=== PATIENT | female | born 1950 | race Caucasian/White ===

== ENCOUNTER 2019-01-16 21:24 | Inpatient (IN) | payer MEDICARE, OTHER, SELFPAY ==
[2019-01-16] VITALS (31 sets, daily range): BP systolic 118–174; BP diastolic 54–98; PULSE 85–140; RESP 14–31; TEMP 37.2; O2SAT 92–97
--- NOTE | 2019-01-16 21:57 | W.ED.GENAD ---
Discharge Plan Disposition Patient Disposition: [facility] INPATIENT Condition: Improving Discharge Details Chief Complaint: Chest Pain Clinical Impression: Atrial fibrillation, rapid Admit Date/Time: 01/17/19 01:28 Admit Provider: Alf London Attending Provider: Alf London Primary Care Provider: Sheela Murillo ED Provider: Bulmaro Chapa Discharge Data Discharge Date/Time-TO BE ENTERED AT DEPARTURE: 01/17/19 02:26 Medical Decision Making 68-year-old female who has a history of atrial fibrillation, diabetes, weeks to months of intermittent episodes of chest pain. She is here visiting family from her home in [place]. Today she reports generalized malaise, intermittent episodes of chest pressure at home. It was associated with elevated heart rate, nausea and diaphoresis. The patient had no chest pain at the time of arrival. Patient noted to have rapid atrial fibrillation with rate of approximately 115 upon arrival. Placed on a night monitor, IV access established, given fluid bolus and given that she does take a beta-jeancarlos she was given a parenteral dose of Lopressor for rate control. Records obtained from [facility] detailing myocardial perfusion pharmacologic stress test on September 24. This noted no acute findings, normal wall motion with ejection fraction of 57%. The myocardial perfusion images were normal. Today, patient had persistent tachydysrhythmia despite 2 doses of IV metoprolol. She therefore was placed on a diltiazem drip. She had 2 brief episodes of transient return to sinus rhythm, but then rapid A. fib recurred. Her labs reveal discrete elevation of the troponin at 0.24, likely due to rate related demand ischemia, particularly given the known recent negative stress test. Repeat troponin obtained at 2 hrs increased to 0.74. Remainder of her lab panel notable for magnesium of 1.4, chronic kidney disease with creatinine of 1.8. At approximately 0025h, the patient converted to rate controlled Afib with HR 70's, then had recurrent rapid Afib. Chest x-ray unremarkable. Case discussed with on-call [facility] cardiology, Dr. Kwong. He agrees this is most likely demand ischemia and states now that the patient is nearing good rate control, he does not feel any tertiary intervention is indicated. He recommends ongoing care as per current plan. Patient states she wishes to be full code. Lab Data Lab results reviewed: Yes I reviewed the patient's lab results. Laboratory Results - last 24 hr 01/16/19 01/16/19 01/16/19 21:45 21:45 21:45 WBC 8.42 RBC 3.95 L Hgb 11.3 L Hct 34.5 L MCV 87.3 MCH 28.6 MCHC 32.8 RDW 14.2 Plt Count 241 MPV 12.4 H Immature Gran % 0.5 Neutrophils % 72.9 Lymphocytes % 11.8 Monocytes % 12.7 Eosinophils % 2.0 Basophils % 0.1 Absolute Neutrophils 6.14 Absolute Lymphocytes 0.99 L Absolute Monocytes 1.07 H Absolute Eosinophils 0.17 Absolute Basophils 0.01 APTT 35.7 H Sodium 138 Potassium 4.1 Chloride 104 Carbon Dioxide 21.8 Anion Gap 12.2 H BUN 47 H Creatinine 1.88 H Estimated GFR/1.73 m2 26.46 Glucose 219 H Magnesium 1.4 L Total Bilirubin 0.4 AST 15 ALT 27 Alkaline Phosphatase 69 Troponin I 0.24 H* Total Protein 7.2 Albumin 3.2 L ECG Data Attestation: I personally reviewed and interpreted this ECG (s) as follows: Interpretation: Atrial fibrillation with a rate of 115, the QRS is narrow, there is nonspecific ST segment depressions of less than 1 mm in leads I, V4 through V6. EKG @22:37 underlying atrial fibrillation with a rate of 117, the QRS is narrow, there is not ST segment depression in leads I, aVL, V4 through 6 per HPI General Mode of arrival: ambulatory. Date/Time Provider Initiated Documentation: 01/16/19 21:27. Limitations to Documentation: no limitations. Information obtained by: patient. History of Present Illness 68 year old F presents to the emergency department with the chief complaint of Chest discomfort and weakness over hours today, similar to previous. , described as moderate and similar to prior episodes, with intensity rated at 5. Quality is described as dull, and is localized to the chest and left. Patient extremity. Patient started experiencing this hour(s) and it has been intermittent and now resolved. No relieving factors improve symptom(s), No exacerbating factors reported . Patient notes loss of appetite, malaise, weakness and other (Palpitations and fast heart rate). Patient did receive the following treatments prior to arrival, Aspirin Related Data Home Medications Medication Instructions Recorded Confirmed amlodipine 10 mg PO DAILY 01/16/19 01/16/19 atorvastatin 40 mg PO DAILY 01/16/19 01/16/19 ergocalciferol (vitamin D2) 1 unit PO DAILY 01/16/19 01/16/19 [Vitamin D2] hydralazine 25 mg PO TID 01/16/19 01/16/19 hydrochlorothiazide 12.5 mg PO DAILY 01/16/19 01/16/19 insulin glargine [Basaglar KwikPen 78 unit SUBCUT HS 01/16/19 01/16/19 U-100 Insulin] losartan 50 mg PO DAILY 01/16/19 01/16/19 metformin 1,000 mg PO BID 01/16/19 01/16/19 metoprolol tartrate 50 mg PO BID 01/16/19 01/16/19 sodium bicarbonate 650 mg PO DAILY 01/16/19 01/16/19 warfarin 4 mg PO HS 01/16/19 01/16/19 Allergies Allergy/AdvReac Type Severity Reaction Status Date / Time Penicillins Allergy Intermediate Hives Unverified 01/16/19 21:55 General Stated Complaint: Chest Pain ANGELITO: 2 Review of Systems Review of Systems 6 systems reviewed and otherwise neg. patient lives in [place]. She reports weeks 2 months of intermittent episodes of left-sided chest pressure that resulted in her having an outpatient stress test at [facility] that she reports was negative [facility] Medical History Atypical chest pain (Chronic) [facility] (current) use of anticoagulants (Chronic) Atrial fibrillation (Chronic) Osteoarthritis of both hips (Chronic) Diabetic retinopathy associated with uncontrolled type 2 diabetes mellitus (Chronic) Chronic renal insufficiency (Chronic) Type 2 diabetes mellitus, with long-term current use of insulin (Chronic) Essential hypertension (Chronic) History of diabetic ulcer of foot (Resolved) Surgical History History of appendectomy (Resolved) History of partial amputation of toe (Resolved) History of phacoemulsification of cataract of both eyes with intraocular lens implantation (Resolved) Social History Smoking/Tobacco Use Status: Never Alcohol Intake: current Alcohol Intake frequency: holidays/special occasions only Alcohol type: wine Substance use type: does not use Do you feel safe at home: Yes Do you feel safe in your relationship?: Yes Exam Narrative Exam Narrative: GEN: awake, alert, oriented 3. Pleasant, well groomed, interactive. HEAD: Normocephalic, atraumatic ENT: Mucous membranes moist, oropharynx unremarkable, External ear exam unremarkable EYES: PERRL, EOMI NECK: Full ROM, no LORI, no menigismus CHEST/RESP: Nontender, clear to auscultation bilateral, no wheeze/rhonchi/rales CARDIOVASCULAR: Tachycardic and irregularly irregular, no murmur, rub heather. 2+ Rad pulse bilateral ABDOMEN: Soft, nontender, no mass. +Bowel sounds EXT: Full ROM, no edema, no rash Neuro: Grossly normal neurologic exam, conversant, interactive. Psych: Speech fluent, thoughts congruent, affect normal Course Vital Signs Temperature 37.2 C 01/16/19 21:43 Pulse 116 H 01/16/19 21:43 Respiratory Rate 30 H 01/16/19 21:43 Blood Pressure 162/63 H 01/16/19 21:43 Pulse Oximetry 96 01/16/19 21:43 Temperature 37.2 C 01/16/19 21:43 Temperature Source Temporal Artery Scan 01/16/19 21:43 Pulse 116 H 01/16/19 21:43 Respiratory Rate 19 01/16/19 21:45 Respiratory Effort 01/16/19 21:45 Respiratory Depth Normal 01/16/19 21:45 Respiratory Pattern Normal 01/16/19 21:45 Blood Pressure 162/63 H 01/16/19 21:43 Blood Pressure Position Supine 01/16/19 21:43 Pulse Oximetry 96 01/16/19 21:43 Oxygen Delivery Method Room Air 01/16/19 21:43 Oxygen Flow Rate 0 01/16/19 21:43 Pain Level 0 01/16/19 21:43 Critical Care Time Critical Care Time: Yes Total Critical Care Time: 60 Attestation: Discussion with consultants, interaction with family and friends, review of outside records, bedside care
--- NOTE | 2019-01-16 22:02 | ED.GENADUL_ITS ---
Discharge Plan Disposition Patient Disposition: [facility] INPATIENT Condition: Improving Discharge Details Chief Complaint: Chest Pain Clinical Impression: Atrial fibrillation, rapid Admit Date/Time: 01/17/19 01:28 Admit Provider: Alf London Attending Provider: Alf London Primary Care Provider: Sheela Murillo ED Provider: Bulmaro Chapa Discharge Data Discharge Date/Time-TO BE ENTERED AT DEPARTURE: 01/17/19 02:26 Medical Decision Making 68-year-old female who has a history of atrial fibrillation, diabetes, weeks to months of intermittent episodes of chest pain. She is here visiting family from her home in [place]. Today she reports generalized malaise, intermittent episodes of chest pressure at home. It was associated with elevated heart rate, nausea and diaphoresis. The patient had no chest pain at the time of arrival. Patient noted to have rapid atrial fibrillation with rate of approximately 115 upon arrival. Placed on a alarm security or surveillance monitor, IV access established, given fluid bolus and given that she does take a beta-jeancarlos she was given a parenteral dose of Lopressor for rate control. Records obtained from [facility] detailing myocardial perfusion pharmacologic stress test on September 24. This noted no acute findings, normal wall motion with ejection fraction of 57%. The myocardial perfusion images were normal. Today, patient had persistent tachydysrhythmia despite 2 doses of IV metoprolol. She therefore was placed on a diltiazem drip. She had 2 brief episodes of transient return to sinus rhythm, but then rapid A. fib recurred. Her labs reveal discrete elevation of the troponin at 0.24, likely due to rate related demand ischemia, particularly given the known recent negative stress test. Repeat troponin obtained at 2 hrs increased to 0.74. Remainder of her lab panel notable for magnesium of 1.4, chronic kidney disease with creatinine of 1.8. At approximately 0025h, the patient converted to rate controlled Afib with HR 70's, then had recurrent rapid Afib. Chest x-ray unremarkable. Case discussed with on-call [facility] cardiology, Dr. Kwong. He agrees this is most likely demand ischemia and states now that the patient is nearing good rate control, he does not feel any tertiary intervention is indicated. He recommends ongoing care as per current plan. Patient states she wishes to be full code. Lab Data Lab results reviewed: Yes I reviewed the patient's lab results. Laboratory Results - last 24 hr 01/16/19 01/16/19 01/16/19 21:45 21:45 21:45 WBC 8.42 RBC 3.95 L Hgb 11.3 L Hct 34.5 L MCV 87.3 MCH 28.6 MCHC 32.8 RDW 14.2 Plt Count 241 MPV 12.4 H Immature Gran % 0.5 Neutrophils % 72.9 Lymphocytes % 11.8 Monocytes % 12.7 Eosinophils % 2.0 Basophils % 0.1 Absolute Neutrophils 6.14 Absolute Lymphocytes 0.99 L Absolute Monocytes 1.07 H Absolute Eosinophils 0.17 Absolute Basophils 0.01 APTT 35.7 H Sodium 138 Potassium 4.1 Chloride 104 Carbon Dioxide 21.8 Anion Gap 12.2 H BUN 47 H Creatinine 1.88 H Estimated GFR/1.73 m2 26.46 Glucose 219 H Magnesium 1.4 L Total Bilirubin 0.4 AST 15 ALT 27 Alkaline Phosphatase 69 Troponin I 0.24 H* Total Protein 7.2 Albumin 3.2 L ECG Data Attestation: I personally reviewed and interpreted this ECG (s) as follows: Interpretation: Atrial fibrillation with a rate of 115, the QRS is narrow, there is nonspecific ST segment depressions of less than 1 mm in leads I, V4 through V6. EKG @22:37 underlying atrial fibrillation with a rate of 117, the QRS is narrow, there is not ST segment depression in leads I, aVL, V4 through 6 per HPI General Mode of arrival: ambulatory . Date/Time Provider Initiated Documentation: 01/16/19 21:27 . Limitations to Documentation: no limitations . Information obtained by: patient . History of Present Illness 68 year old F presents to the emergency department with the chief complaint of Chest discomfort and weakness over hours today, similar to previous. , described as moderate and similar to prior episodes, with intensity rated at 5. Quality is described as dull, and is localized to the chest and left. Patient extremity. Patient started experiencing this hour(s) and it has been intermittent and now resolved. No relieving factors improve symptom(s), No exacerbating factors reported . Patient notes loss of appetite, malaise, weakness and other (Palpitations and fast heart rate). Patient did receive t he following treatments prior to arrival, Aspirin Related Data Home Medications Medication Instructions Recorded Confirmed amlodipine 10 mg PO DAILY 01/16/19 01/16/19 atorvastatin 40 mg PO DAILY 01/16/19 01/16/19 ergocalciferol (vitamin D2) 1 unit PO DAILY 01/16/19 01/16/19 [Vitamin D2] hydralazine 25 mg PO TID 01/16/19 01/16/19 hydrochlorothiazide 12.5 mg PO DAILY 01/16/19 01/16/19 insulin glargine [Basaglar KwikPen 78 unit SUBCUT HS 01/16/19 01/16/19 U-100 Insulin] losartan 50 mg PO DAILY 01/16/19 01/16/19 metformin 1,000 mg PO BID 01/16/19 01/16/19 metoprolol tartrate 50 mg PO BID 01/16/19 01/16/19 sodium bicarbonate 650 mg PO DAILY 01/16/19 01/16/19 warfarin 4 mg PO HS 01/16/19 01/16/19 Allergies Allergy/AdvReac Type Severity Reaction Status Date / Time Penicillins Allergy Intermediate Hives Unverified 01/16/19 21:55 General Stated Complaint: Chest Pain ANGELITO: 2 Review of Systems Review of Systems 6 systems reviewed and otherwise neg. patient lives in [place]. She reports weeks 2 months of intermittent episodes of left-sided chest pressure that resulted in her having an outpatient stress test at [facility] that she reports was negative [facility] Medical History Atypical chest pain (Chronic) [facility] (current) use of anticoagulants (Chronic) Atrial fibrillation (Chronic) Osteoarthritis of both hips (Chronic) Diabetic retinopathy associated with uncontrolled type 2 diabetes mellitus (Chronic) Chronic renal insufficiency (Chronic) Type 2 diabetes mellitus, with long-term current use of insulin (Chronic) Essential hypertension (Chronic) History of diabetic ulcer of foot (Resolved) Surgical History History of appendectomy (Resolved) History of partial amputation of toe (Resolved) History of phacoemulsification of cataract of both eyes with intraocular lens implantation (Resolved) Social History Smoking/Tobacco Use Status: Never Alcohol Intake: current Alcohol Intake frequency: holidays/special occasions only Alcohol type: wine Substance use type: does not use Do you feel safe at home: Yes Do you feel safe in your relationship?: Yes Exam Narrative Exam Narrative: GEN: awake, alert, oriented 3. Pleasant, well groomed, interactive. HEAD: Normocephalic, atraumatic ENT: Mucous membranes moist, oropharynx unremarkable, External ear exam unremarkable EYES: PERRL, EOMI NECK: Full ROM, no LORI, no menigismus CHEST/RESP: Nontender, clear to auscultation bilateral, no wheeze/rhonchi/rales CARDIOVASCULAR: Tachycardic and irregularly irregular, no murmur, rub heather. 2+ Rad pulse bilateral ABDOMEN: Soft, nontender, no mass. +Bowel sounds EXT: Full ROM, no edema, no rash Neuro: Grossly normal neurologic exam, conversant, interactive. Psych: Speech fluent, thoughts congruent, affect normal Course Vital Signs Temperature 37.2 C 01/16/19 21:43 Pulse 116 H 01/16/19 21:43 Respiratory Rate 30 H 01/16/19 21:43 Blood Pressure 162/63 H 01/16/19 21:43 Pulse Oximetry 96 01/16/19 21:43 Temperature 37.2 C 01/16/19 21:43 Temperature Source Temporal Artery Scan 01/16/19 21:43 Pulse 116 H 01/16/19 21:43 Respiratory Rate 19 01/16/19 21:45 Respiratory Effort 01/16/19 21:45 Respiratory Depth Normal 01/16/19 21:45 Respiratory Pattern Normal 01/16/19 21:45 Blood Pressure 162/63 H 01/16/19 21:43 Blood Pressure Position Supine 01/16/19 21:43 Pulse Oximetry 96 01/16/19 21:43 Oxygen Delivery Method Room Air 01/16/19 21:43 Oxygen Flow Rate 0 01/16/19 21:43 Pain Level 0 01/16/19 21:43 Critical Care Time Critical Care Time: Yes Total Critical Care Time: 60 Attestation: Discussion with consultants, interaction with family and friends, review of outside records, bedside care
[2019-01-16] MEDS: Normal Saline 1,000 ML 1000 ML IV (22:10)
[2019-01-16] MEDS: Metoprolol 5 MG/5 ML VIAL IVP ×2 (22:10→22:35)
[2019-01-16 22:34] LABS: Abs Immature Grans 0.04 k/cumm (0.0-0.09); Absolute Basophil Count 0.01 k/cumm (0.0-0.2); Absolute Eosinophil Count 0.17 k/cumm (0.0-0.7); Absolute Lymphocyte Count 0.99 k/cumm (1.2-3.4); Absolute Monocyte Count 1.07 k/cumm (0.11-0.7); Absolute Neutrophil Count 6.14 k/cumm (1.2-6.7); Basophils % 0.1; HCT 34.5 % (36.0-46.0); HGB 11.3 g/dL (12.0-15.5); Immature Grans % 0.5; Lymphocytes % 11.8; Mean Corp. HGB Concentration 32.8 g/dL (32.0-36.0); Mean Corpuscular Hemoglobin 28.6 pg (27.0-33.0); Mean Corpuscular Volume 87.3 fL (80-95); Mean Platelet Volume 12.4 fL (8.0-11.0); Monocytes % 12.7; Neutrophils % 72.9; Platelet Count 241 x1000/uL (130-400); RBC 3.95 m/cumm (4.00-5.20); RBC Distribution Width 14.2 % (11.7-14.6); White Blood Cell Count 8.42 k/cumm (4.4-10.8)
[2019-01-16 22:45] LABS: PTT Activated 35.7 sec (21.0-31.4)
[2019-01-16 22:46] LABS: ALT 27 U/L (12-78); AST 15 U/L (15-37); Albumin 3.2 g/dL (3.4-5.0); Alkaline Phosphatase 69 U/L (46-116); Anion Gap 12.2 mmol/L (3-11); BUN 47 mg/dL (7-18); Bilirubin, Total 0.4 mg/dL (0.2-1.0); CO2 21.8 mmol/L (21.0-32.0); CREATININE 1.88 mg/dL (0.55-1.02); Chloride 104 mmol/L (98-107); Estimated GFR 26.46 (mL/min/1.73m2); Glucose 219 mg/dL (70-100); Magnesium 1.4 mg/dL (1.8-2.4); Potassium 4.1 mmol/L (3.5-5.1); Sodium 138 mmol/L (136-145); Total Protein 7.2 g/dL (6.4-8.2)
[2019-01-16 22:51] LABS: Troponin I 0.24 ng/mL (0.00-0.06)
[2019-01-16 22:55] LABS: Calcium 8.6 mg/dL (8.5-10.1)
[2019-01-16] MEDS: dilTIAZem 25 MG/5 ML VIAL 10 MG IVP ×3 (23:00→23:40)
[2019-01-16] MEDS: dilTIAZem 125 MG in Normal Saline 100 ML 10 MG IV (23:10)
[2019-01-16 23:15] LABS: INR 2.5 (0.9-1.1); Prothrombin Time 25.5 sec (9.3-11.0)
--- NOTE | 2019-01-16 23:30 | DI.RAD_ITS ---
SYMPTOMS/DIAGNOSIS: LEFT CHEST PAIN AP AND LATERAL CHEST: The AP view is limited by patient positioning and technique. Leads overlie the chest. The heart size is within normal limits. There may be mild underlying fibrotic changes. No superimposed infiltrate, effusion or pulmonary edema is seen. There is no evidence of pneumothorax. IMPRESSION: No acute abnormality.
[2019-01-16] MEDS: Acetaminophen 325 MG TAB 650 MG PO (23:36)
[2019-01-16] MEDS: Aspirin 81 MG CHEW 162 MG PO (23:36)
--- NOTE | 2019-01-16 23:49 | DI.VRAD_ITS ---
EXAM: XR Chest, 2 Views EXAM DATE/TIME: 01/16/2019 9:53 PM CLINICAL HISTORY: 68 years old, female; Left-sided chest pain; Patient HX: Chest pain radiating into L arm, vomiting and diarrhea TECHNIQUE: Imaging protocol: XR of the chest, 2 views. COMPARISON: No relevant prior studies available. FINDINGS: Lungs: No gross infiltrates or edema. Pleural space: No pleural effusion. No pneumothorax. Heart/Mediastinum: Heart size normal. No mediastinal widening. Pulmonary vaculature normal. No tracheal shift. Bones/joints: No acute osseous abnormalities are identified. IMPRESSION: No acute process is evident radiographically. Dictated and Authenticated by: Jonnie Leal MD. Ordering:NANCY Chamberlain MD
[2019-01-17] VITALS (69 sets, daily range): BP systolic 96–157; BP diastolic 36–89; PULSE 49–140; RESP 1–40; TEMP 36.9–37.2; O2SAT 92–99
[2019-01-17 00:05] LABS: Troponin I 0.74 ng/mL (0.00-0.06)
[2019-01-17] MEDS: MAGNESIUM SULFATE 2 GM/50 ML BAG IVPB ×2 (00:45→08:52)
[2019-01-17 02:06] LABS: Troponin I 2.19 ng/mL (0.00-0.06)
--- NOTE | 2019-01-17 02:48 | HPE_ITS ---
Date of service: 01/17/19 Time of Service: 02:34 Assessment and Plan (1) Non-STEMI (non-ST elevated myocardial infarction): Current visit: Yes Status: Acute secondary to rapid atrial fibrillation and type 2 demand ischemia. However, still need to monitor troponin levels until peaked and are on their way down. continue current regimen of warfarin and metoprolol, however, currently needs iv diltiazem to control rapid atrial fibrillation. check echocardiogram to assess LV function; however bedside POCUS suggests normal LV systolic function (based on multiple views including PLAX, PSAX, AP4C and subxiphoid 4C. (2) Atrial fibrillation: Current visit: Yes Status: Chronic chronic afib w/ acute rapid rate causing chest pain and elevated troponins. Now that her rate is improved her CP has resolved and her ST-T changes in her lateral leads have improved. Will continue to cycle her troponin levels until declining and get formal echocardiogram in the a.m. She is anticoagulated w/ warfarin therefore no need for heparin at present. Will continue her lopressor and titrate the iv diltiazem for rate control. Check TSH w/ reflex T4 with her a.m. 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 will continue her current warfarin regimen and monitor daily INR (4) Type 2 diabetes mellitus, with long-term current use of insulin: Current visit: Yes Status: Chronic continue her home dose of Lantus and provide sliding scale novolog and meal coverage. hold metformin for now in setting of NSTEMI Qualifiers: Diabetes mellitus complication detail: with chronic kidney disease Diabetes mellitus complication status: with kidney complications (5) Essential hypertension: Current visit: Yes Status: Chronic continue home meds of hydralazine, amlodipine, losartan and metoprolol (6) Chronic renal insufficiency: Current visit: Yes Status: Chronic avoid nephrotoxins/NSAID's; control BP and HR to improve hemodynamics; monitor renal function particularly in setting of NSTEMI Qualifiers: Chronic kidney disease stage: stage 4 (severe) Qualified Code(s): N18.4 - Chronic kidney disease, stage 4 (severe) History of Present Illness Chief Complaint: chest pain Narrative: 68 yr old female w/ PMH of atrial fibrillation (anticoagulated w/ warfarin, rate controlled w/ lopressor), type 2 DM on insulin, HTN who present to the ER w/ c/o of intermittent episodes of chest pain. Onset was Thursday and lasted most of the morning. She felt fine this morning but her chest pain reoccurred Thursday afternoon. This was not associated w/ any dyspnea but she noted that she felt fatiguted and could not walk more than a few steps. Her friend and her family finally convinced her to check her BP and pulse this evening when she found herself to be hypertensive at 192/107 and tachycardiac at 150 bpm. She then decided to come to the ER [facility]. She lives in [place] and is visiting a friend in [place], [place] and arrived Thursday evening for the weekend. Apparently she had a workup of her chest pain at [facility] in September that included normal pharmacologic stress MPI w/ LVEF 57% and no wall motion abnormalities according to information sent to our ER. [facility] she was found to be in rapid atrial fibrillation with lateral ST-T depression and elevated troponin of 0.24 and repeat of 0.74. She was given lopressor 5 mg IVP x 2 doses w/ transient return to NSR only to follow w/ return of rapid atrial fibrillation. She subsequently was placed on diltiazem drip and given repeated boluses of diltiazem 10 mg each w/ titration of her rate to 15 mg/hr. Dr. Bulmaro Chapa, emergency room attending, spoke w/ Dr. Kwong, junior php developer at [facility] who felt that the patient's elevated troponins and EKG changes are secondary to rate related ischemia and felt that improving afib rate was primary treatment and that the patient did not need transfer to tertiary care center. Since Dr. Chapa spoke w/ [facility], the patient's rapid afib rate has come under improved control and her repeat EKG has improved of her ST changes. CXR did not show any acute CHF. The patient is now admitted to ICU on diltiazem drip for afib rate control and continued HR/rhythm monitoring and continued trending of her troponin levels. She was also found to have renal insufficiency w/ creatinine of 1.88 and BUN 47 and hypomagnesemia (Mg 1.4 treated w/ magnesium bolus of 2 gm). Review of Systems Review of Systems All systems reviewed & are unremarkable except as noted in HPI and below Eyes Reports blurry vision (secondary to retinopathy in right eye) ENT Reports system reviewed and no additional complaints, except as docu Cardiovascular Reports as per HPI, Reports chest pain, Reports rapid heart rate, Denies pedal edema, Denies claudication, Denies leg edema, Denies lightheadedness and Denies dyspnea Respiratory Reports system reviewed and no additional complaints, except as docu and Denies dyspnea Gastrointestinal Reports diarrhea (chronic loose BM's for intermittently for mos., ?metformin) Genitourinary Reports system reviewed and no additional complaints, except as docu Musculoskeletal Reports arthralgias, Denies joint swelling, Denies numbness, Denies radiating pain into limb and Reports tingling (in feet) Integumentary/Breasts Reports system reviewed and no additional complaints, except as docu Neurologic Denies numbness and Reports tingling (in feet) Psychiatric Reports system reviewed and no additional complaints, except as docu Endocrine Reports system reviewed and no additional complaints, except as docu Hematologic/Lymphatic Reports easy bruising Allergic/Immunologic Reports system reviewed and no additional complaints, except as docu PFSH Medical History Atypical chest pain (Chronic) intermodal owner operator truck driver (current) use of anticoagulants (Chronic) Atrial fibrillation (Chronic) Osteoarthritis of both hips (Chronic) Diabetic retinopathy associated with uncontrolled type 2 diabetes mellitus (Chronic) Chronic renal insufficiency (Chronic) Type 2 diabetes mellitus, with long-term current use of insulin (Chronic) Essential hypertension (Chronic) History of diabetic ulcer of foot (Resolved) Surgical History History of appendectomy (Resolved) History of partial amputation of toe (Resolved) History of phacoemulsification of cataract of both eyes with intraocular lens implantation (Resolved) Social History Smoking/Tobacco Use Status: Never Alcohol Intake: current Alcohol Intake frequency: holidays/special occasions only Alcohol type: wine Substance use type: does not use Do you feel safe at home: Yes Do you feel safe in your relationship?: Yes Meds Home Medications Medication Instructions Recorded Confirmed Type amlodipine 10 mg PO DAILY 01/16/19 01/16/19 History atorvastatin 40 mg PO DAILY 01/16/19 01/16/19 History ergocalciferol (vitamin D2) 1 unit PO DAILY 01/16/19 01/16/19 History [Vitamin D2] hydralazine 25 mg PO TID 01/16/19 01/16/19 History hydrochlorothiazide 12.5 mg PO DAILY 01/16/19 01/16/19 History insulin glargine [Basaglar KwikPen 78 unit SUBCUT HS 01/16/19 01/16/19 History U-100 Insulin] losartan 50 mg PO DAILY 01/16/19 01/16/19 History metformin 1,000 mg PO BID 01/16/19 01/16/19 History metoprolol tartrate 50 mg PO BID 01/16/19 01/16/19 History sodium bicarbonate 650 mg PO DAILY 01/16/19 01/16/19 History warfarin 4 mg PO HS 01/16/19 01/16/19 History Allergies Allergy/AdvReac Type Severity Reaction Status Date / Time Penicillins Allergy Intermediate Hives Unverified 01/16/19 21:55 Exam Const General: cooperative, no acute distress and well hydrated Nutritional Appearance: obese Orientation: alert, awake and oriented x3 HENMT Head: normal to inspection, no palpable skull fracture, normocephalic and atraumatic General nose exam: external nose normal, nares normal and nasal mucous membranes and turbinates normal Face and sinus: normal facial exam Mouth: oral mucosae normal, lip normal, tongue normal, oropharynx normal and moist mucous membranes Teeth and gingiva: dentition normal Chest Chest: normal inspection of the chest and normal palpation of entire chest wall Resp Effort & Inspection: normal respiratory effort and able to speak in complete sentences Auscultation: clear to auscultation bilaterally Cardio Jugular venous pressure: no JVD Palpation: normal PMI Rate: regular rate Rhythm: abnormal rhythm irregularly irregular Heart Sounds: no murmurs Bruits: no abdominal aortic bruits and carotid bruit bilaterally Pulses: posterior tibial pulses present bilaterally 1+ and diminished and dorsalis pedis pulses present bilaterally 1+ and diminished GI Inspection: non-distended and obesity Palpation: soft and no hepatosplenomegaly Percussion: normal to percussion Auscultation: normal bowel sounds Rectal Exam - female: deferred Back/Spine/Pelvis Back: no CVA tenderness Cervical Spine: normal cervical lordosis Thoracic/Lumbar Spine: thoracic and lumbar spine normal to inspection Skin General skin exam: no rashes or lesions noted, elasticity normal and turgor normal Neuro General: alert, awake, oriented x3, moves all extremities and no focal motor deficits Cranial Nerves: CN's II-XI intact bilaterally Cognition: normal cognition Speech: speech normal Motor: muscle tone normal throughout, strength 5/5 throughout and no movement abnormalities noted Sensory Exam: normal double simultaneous stimulation Extrem General: full ROM, normal capillary refill, normal exam except as noted (s/p partial amputation of distal L. 3rd toe), no clubbing, cyanosis or edema, no pedal edema and no calf tenderness Psych Appearance: grossly normal Mental Status: mental status grossly normal Speech and Movement: speech and movement normal Mood: congruent mood Affect: normal affect Attitude: cooperative Thought Process: normal Thought Content: normal Insight: insight good Judgment: judgment good Results Imaging Chest x-ray: report reviewed (IMPRESSION: No acute process is evident radiographically. Dictated and Authenticated by: Jonnie Leal MD.) EKG: image reviewed Labs : 01/16/19 21:45 01/16/19 21:45 Laboratory Results - last 24 hr 01/16/19 01/16/19 01/16/19 21:45 21:45 21:45 WBC 8.42 RBC 3.95 L Hgb 11.3 L Hct 34.5 L MCV 87.3 MCH 28.6 MCHC 32.8 RDW 14.2 Plt Count 241 MPV 12.4 H Immature Gran % 0.5 Neutrophils % 72.9 Lymphocytes % 11.8 Monocytes % 12.7 Eosinophils % 2.0 Basophils % 0.1 Absolute Neutrophils 6.14 Absolute Lymphocytes 0.99 L Absolute Monocytes 1.07 H Absolute Eosinophils 0.17 Absolute Basophils 0.01 PT 25.5 H INR 2.5 H APTT 35.7 H Sodium 138 Potassium 4.1 Chloride 104 Carbon Dioxide 21.8 Anion Gap 12.2 H BUN 47 H Creatinine 1.88 H Estimated GFR/1.73 m2 26.46 Glucose 219 H Calcium 8.6 Magnesium 1.4 L Total Bilirubin 0.4 AST 15 ALT 27 Alkaline Phosphatase 69 Troponin I 0.24 H* Total Protein 7.2 Albumin 3.2 L 01/16/19 01/17/19 23:42 01:44 WBC RBC Hgb Hct MCV MCH MCHC RDW Plt Count MPV Immature Gran % Neutrophils % Lymphocytes % Monocytes % Eosinophils % Basophils % Absolute Neutrophils Absolute Lymphocytes Absolute Monocytes Absolute Eosinophils Absolute Basophils PT INR APTT Sodium Potassium Chloride Carbon Dioxide Anion Gap BUN Creatinine Estimated GFR/1.73 m2 Glucose Calcium Magnesium Total Bilirubin AST ALT Alkaline Phosphatase Troponin I 0.74 H* 2.19 H* Total Protein Albumin Last Vital Signs Temp 37.2 C 01/16/19 21:43 Pulse 79 01/17/19 01:31 Resp 23 01/17/19 01:43 BP 125/55 L 01/17/19 01:31 Pulse Ox 94 L 01/17/19 01:31
[2019-01-17 03:32] LABS: NT-proBNP 5079 pg/mL
[2019-01-17 05:26] LABS: Abs Immature Grans 0.02 k/cumm (0.0-0.09); Absolute Basophil Count 0.01 k/cumm (0.0-0.2); Absolute Eosinophil Count 0.16 k/cumm (0.0-0.7); Absolute Lymphocyte Count 1.64 k/cumm (1.2-3.4); Absolute Neutrophil Count 4.09 k/cumm (1.2-6.7); Basophils % 0.1; Eosinophils % 2.3; HGB 9.7 g/dL (12.0-15.5); Immature Grans % 0.3; Mean Corp. HGB Concentration 32.3 g/dL (32.0-36.0); Mean Corpuscular Hemoglobin 28.4 pg (27.0-33.0); Mean Platelet Volume 11.5 fL (8.0-11.0); Monocytes % 13.2; Neutrophils % 60.1; Platelet Count 204 x1000/uL (130-400); RBC 3.41 m/cumm (4.00-5.20); RBC Distribution Width 14.3 % (11.7-14.6); White Blood Cell Count 6.82 k/cumm (4.4-10.8)
[2019-01-17 05:35] LABS: Magnesium 1.9 mg/dL (1.8-2.4)
[2019-01-17 05:39] LABS: Hemoglobin A1C 7.7 % (4.5-6.2)
[2019-01-17 05:41] LABS: INR 2.3 (0.9-1.1); Prothrombin Time 23.3 sec (9.3-11.0)
[2019-01-17 05:43] LABS: RBC Morphology Normal
[2019-01-17 05:45] LABS: Troponin I 4.77 ng/mL (0.00-0.06)
[2019-01-17 05:48] LABS: ALT 22 U/L (12-78); AST 24 U/L (15-37); Albumin 2.7 g/dL (3.4-5.0); Alkaline Phosphatase 58 U/L (46-116); Anion Gap 10.6 mmol/L (3-11); BUN 48 mg/dL (7-18); Bilirubin, Total 0.3 mg/dL (0.2-1.0); CO2 21.4 mmol/L (21.0-32.0); CREATININE 2.05 mg/dL (0.55-1.02); Calcium 8.1 mg/dL (8.5-10.1); Chloride 106 mmol/L (98-107); Cholesterol 145 mg/dL (50-200); Estimated GFR 23.94 (mL/min/1.73m2); Glucose 263 mg/dL (70-100); HDL Cholesterol 32 mg/dL (40-60); LDL CHOLESTEROL 81 mg/dL (<100); Potassium 4.2 mmol/L (3.5-5.1); Sodium 138 mmol/L (136-145); TSH 0.57 uIU/mL (0.358-3.74); Total Protein 6.2 g/dL (6.4-8.2); Triglyceride 240 mg/dL (30-150)
[2019-01-17] MEDS: Metoprolol 50 MG TAB PO (06:35)
--- NOTE | 2019-01-17 07:30 | MERGE_ITS ---
*[facility]* *[facility]* [address] [place] [address] Date of study: 01/17/2019 Transthoracic Echocardiography M-mode, complete 2D, complete spectral Doppler, and color Doppler *STUDY CONCLUSIONS* Summary: 1. Left ventricle: The cavity size was at the upper limits of normal. Systolic function was normal. The estimated ejection fraction was 60-65%. The tissue Doppler parameters were normal. There was no evidence of elevated ventricular filling pressure by Doppler parameters. 2. Mitral valve: There was mild to moderate regurgitation. 3. Left atrium: The atrium was mildly dilated. 4. Right ventricle: The cavity size was normal. Wall thickness was normal. Systolic function was normal. 5. Tricuspid valve: There was moderate regurgitation. 6. Pulmonary arteries: Pulmonary systolic pressure was >= 40mm Hg. 7. Inferior vena cava: Poorly visualized. *PATIENT PRESENTATION* Height: 177.8cm ((70in) ) S/D Pressure: 131 / 57 Weight: 94.3kg ((207.6lb) ) BSA: 2.18m^2 Test start time: 07:45 AM. Test stop time: 08:20 AM. PERFORMING Unknown CONSULTING Sheela Murillo Aprn PERFORMING [facility] ORDERING Mauro London REFERRING Mauro London CURATOR [employer] RT Cachorro (R)(ANTWAN), SAMARA *PROCEDURE DATA* Procedure information: The patient was identified by two identifiers. This study was interpreted by [facility]. Pertinent images and digital data are archived for permanent storage and are available for subsequent review. No prior study was available for comparison. Study status: Routine. Transthoracic echocardiography. M-mode, complete 2D, complete spectral Doppler, and color Doppler. A Transthoracic Echocardiogram was performed. Scanning was performed from the parasternal, apical, subcostal, and suprasternal notch acoustic windows. Images were obtained using an [id number] cardiac ultrasound machine. Image quality was adequate. Study completion: The patient tolerated the procedure well. History: PMH: NSTEMI AFIB evaluate LV funciton. *CARDIAC ANATOMY* Left ventricle: The cavity size was at the upper limits of normal. Systolic function was normal. The estimated ejection fraction was 60-65%. The tissue Doppler parameters were normal. There was no evidence of elevated ventricular filling pressure by Doppler parameters. Aortic valve: Trileaflet; mildly thickened, mildly calcified leaflets. Doppler: There was no stenosis. There was no regurgitation. VTI ratio of LVOT to aortic valve: 0.63. Valve area (VTI): 2cm^2. Indexed valve area (VTI): 0.9cm^2/m^2. Peak velocity ratio of LVOT to aortic valve: 0.62. Valve area (Vmax): 2cm^2. Indexed valve area (Vmax): 0.9cm^2/m^2. Mean velocity ratio of LVOT to aortic valve: 0.52. Valve area (Vmean): 1.6cm^2. Indexed valve area (Vmean): 0.8cm^2/m^2. Mean gradient (S): 5.4mm Hg. Peak gradient (S): 8.4mm Hg. Aorta: Aortic root: The aortic root was mildly dilated. Ascending aorta: The ascending aorta was mildly dilated. Mitral valve: Doppler: There was no evidence for stenosis. There was mild to moderate regurgitation. Valve area by pressure half-time: 3.8cm^2. Indexed valve area by pressure half-time: 1.7cm^2/m^2. Peak gradient (D): 4.8mm Hg. Left atrium: The atrium was mildly dilated. Atrial septum: Poorly visualized. Right ventricle: The cavity size was normal. Wall thickness was normal. Systolic function was normal. Pulmonic valve: Doppler: There was no evidence for stenosis. There was mild regurgitation. Peak gradient (S): 4.7mm Hg. Tricuspid valve: Doppler: There was moderate regurgitation. Pulmonary artery: Poorly visualized. Pulmonary systolic pressure was >= 40mm Hg. Right atrium: The atrium was normal in size. Pericardium: There was no significant pericardial effusion. Systemic veins: Inferior vena cava: Poorly visualized. Baseline ECG: Bradycardia. Measurements Left ventricle Value Reference LV ID, ED, PLAX 6.0 cm 3.5 - 6.0 LV ID, ES, PLAX (H) 4.3 cm 2.1 - 4.0 LV PW thickness, ED, PLAX 1.0 cm LV end-diastolic volume, 1-p A2C 152 ml LV ejection fraction, 1-p A2C 60 % LV end-diastolic volume, 1-p A4C 169 ml LV ejection fraction, 1-p A4C 64 % LV e', lateral 0.11 m/sec LV E/e', lateral 10 LV e', medial 0.068 m/sec LV E/e', medial 16 LV e', average 0.089 m/sec LV E/e', average 12 Ventricular septum Value Reference IVS thickness, ED, PLAX 1.0 cm LVOT Value Reference LVOT ID, A-P 2.0 cm LVOT area 3.2 cm^2 LVOT peak velocity, S 0.9 m/sec LVOT mean velocity, S 0.59 m/sec LVOT VTI, S 25.4 cm LVOT peak gradient, S 3.2 mm Hg LVOT mean gradient, S 1.6 mm Hg Stroke volume (SV), LVOT DP 81 ml Stroke index (SV/bsa), LVOT DP 37 ml/m^2 Aortic valve Value Reference Aortic valve peak velocity, S 1.5 m/sec Aortic valve mean velocity, S 1.13 m/sec Aortic valve VTI, S 40.0 cm Aortic mean gradient, S 5.4 mm Hg Aortic peak gradient, S 8.4 mm Hg VTI ratio, LVOT/AV 0.63 Aortic valve area, VTI 2 cm^2 Velocity ratio, peak, LVOT/AV 0.62 Aortic valve area, peak velocity 2 cm^2 Velocity ratio, mean, LVOT/AV 0.52 Aortic valve area, mean velocity 1.6 cm^2 Aortic valve area/bsa, mean velocity 0.8 cm^2/m^2 Aorta Value Reference Aortic root ID, ED 3.7 cm Ascending aorta ID, A-P, S 3.9 cm Left atrium Value Reference LA ID, A-P, ES 4.6 cm LA ID/bsa, A-P 2.1 cm/m^2 <=2.2 LA area, ES, A4C (H) 28.6 cm^2 8.8 - 23.4 LA area, ES, A2C 23 cm^2 LA volume/bsa, ES, 1-p A4C 48 ml/m^2 LA volume, ES, 2-p 95 ml LA volume/bsa, ES, 2-p 44 ml/m^2 LA/aortic root ratio 1.25 Mitral valve Value Reference Mitral E-wave peak velocity 1.1 m/sec Mitral A-wave peak velocity 0.65 m/sec Mitral deceleration time 200 ms 150 - 230 Mitral pressure half-time 58 ms Mitral peak gradient, D 4.8 mm Hg Mitral E/A ratio, peak 1.67 Mitral valve area, PHT, DP 3.8 cm^2 Pulmonary veins Value Reference Pulmonary vein peak velocity, S 0.6 m/sec Pulmonary vein peak velocity, D 0.67 m/sec Pulmonary vein velocity ratio, peak, 0.89 S/D Pulmonary vein A-wave reversal peak 0.24 m/sec velocity Tricuspid valve Value Reference Tricuspid regurg peak velocity 3.3 m/sec Tricuspid peak RV-RA gradient 43.9 mm Hg Right atrium Value Reference RA area, ES, A4C 18 cm^2 8.3 - 19.5 Pulmonic valve Value Reference Pulmonic peak gradient, S 4.7 mm Hg Legend: (L) and (H) jessica values outside specified reference range. I have personally reviewed the images and have reviewed and edited the reported findings. Electronically signed by Bhaskar Brown MD 01/17/2019 10:55
[2019-01-17] MEDS: hydroCHLOROthiazide 12.5 MG TAB PO (07:42)
[2019-01-17] MEDS: hydrALAZINE 25 MG TAB PO (07:43)
[2019-01-17] MEDS: Atorvastatin 40 MG TAB PO (07:44)
[2019-01-17] MEDS: Sodium Bicarbonate 650 MG TAB PO (07:45)
[2019-01-17] MEDS: amLODIPine 5 MG TAB 10 MG PO (07:45)
--- NOTE | 2019-01-17 07:49 | PDOC.CMIN ---
- If Service Date Differs Date of service: 01/17/19 Time of Service: 07:49 Care Management Initial Assess REASON FOR HOSPITALIZATION:: Non-STEMI. Afib PAST MEDICAL HISTORY/PAST SURGICAL HISTORY:: Medical History: Atypical chest pain, group home use of anticoagulants, Atrial fibrillation. Osteoarthritis of both hips, Diabetic retinopathy associated with uncontrolled type 2 diabetes mellitus, Chronic renal insufficiency, Type 2 diabetes mellitus, with long-term current use of insulin, Essential hypertension. History of diabetic ulcer of foot. Surgical History: History of appendectomy. History of partial amputation of toe. History of phacoemulsification of cataract of both eyes with intraocular lens implantation ADVANCE DIRECTIVES:: None on file CODE STATUS:: Full Code PATIENT/FAMILY EDUCATION NEEDS:: Discharge plan, limitations, follow upplan of care and Ask Me Three.
--- NOTE | 2019-01-17 08:04 | INITIAL_ITS ---
- If Service Date Differs Date of service: 01/17/19 Time of Service: 07:49 Care Management Initial Assess REASON FOR HOSPITALIZATION:: Non-STEMI. Afib PAST MEDICAL HISTORY/PAST SURGICAL HISTORY:: Medical History: Atypical chest pain, skilled nursing use of anticoagulants, Atrial fibrillation. Osteoarthritis of both hips, Diabetic retinopathy associated with uncontrolled type 2 diabetes mellitus, Chronic renal insufficiency, Type 2 diabetes mellitus, with long-term current use of insulin, Essential hypertension. History of diabetic ulcer of foot. Surgical History: History of appendectomy. History of partial amputation of toe. History of phacoemulsification of cataract of both eyes with intraocular lens implantation ADVANCE DIRECTIVES:: None on file CODE STATUS:: Full Code PATIENT/FAMILY EDUCATION NEEDS:: Discharge plan, limitations, follow upplan of care and Ask Me Three.
[2019-01-17] MEDS: Ergocalciferol 50000 UNITS CAP PO (08:08)
--- NOTE | 2019-01-17 09:18 | W.PM.DS.N ---
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 (4) Type 2 diabetes mellitus, with long-term current use of insulin: Status: Chronic (5) Essential hypertension: Status: Chronic (6) Chronic renal insufficiency: Status: Chronic (7) Cardiopulmonary arrest with successful resuscitation: Status: Acute (8) V-tach: Status: Chronic Discharge Plan Disposition Patient Disposition: [facility] Condition: Improving Discharge Details Reason For Visit: RAPID ATRIAL FIBRILLATION Admit Date/Time: 01/17/19 01:28 Admit Provider: Alf London Attending Provider: Alf London Primary Care Provider: Sheela Murillo Hospital Course Hospital Course: Chief Complaint: Chest Pain HPI: 68 yr old woman with a past history of DM and AFib on AC with Warfarin, admitted from [facility] Emergency Department 01/17/2019 with a diagnosis of Afib with RVR and NSTEMI. Mrs. Valladares has a history of Afib on anticoagulation chronically with Warfarin, IDDM, HTN, and CKD. She present to the ED with complains of intermittent chest pain. Symptoms were apparently onset 2 days prior and were intermittent in nature, along with concurrent fatigue. Her family also reports that she had been dyspneic while out on walks. She is a resident of [place] and receives her care at [facility], and is here locally visiting family and friends. Upon presentation she was found to be hypertensive at 192/107 and tachycardiac with a HR in the 150's. Her EKG exhibited changes consistent with ST segment depressions laterally in I and AVL, as well as slight depression across V6. Of note, she had work-up of chest pain at [facility] in September, with a normal pharmacologic stress MPI, specifically noted to have an LVEF of 57% and a lack of wall motion abnormalities. The patient's initial troponin was elevated at 0.24, trended to 0.74, 2.19, and 4.77. Discussion with Cardiology at [facility] deemed this likely demand inthe setting of rapid Afib. She was already anticoagulated with a therapeutic INR. She was referred for admission and admitted to the ICU on a Cardizem drip. Early this morning she converted to sinus rhythm, and the Cardizem gtt was discontinued, and her BB was increased. The patient had become asymptomatic from a chest pain standpoint, and her EKG changes had improved. While receiving an ECHO early this morning the patient suddenly became unresponsive, without a pulse or spontaneous respiration. Mrs. Valladares received approximately 60 seconds of CPR and was bagged - her rhythm appeared shockable with VTach/Vfib. She was delivered a one time shock and converted to a sinus bradycardia, with spontaneous resumption of breathing. She regained her normal mental status minutes after. Review of her labs revealed a K+ above 4, and Magnesium of 1.9. She was given 2g of IV Magnesium, and initiated on an Amiodarone drip. Discussion was again had with cardiology at [facility], and she was accepted in transfer, potentially for a diagnostic LHC if deemed appropriate in diabetic woman with a negative chemical stress test last September. Please note that due to time constraints in transfer a CXR was ordered post cardiopulmonary arrest, but not obtained. A urinalysis was also not obtained at time of admission. TSH was normal at 0.57. ECHO was started but not completed. INR is therapeutic at 2.3 this morning. Current Medications: 1. Tylenol 650mg Q4 prn 2. Amiodarone 150 mg IV administered, currently at 1mg/minute 3. Amlodipine 10mg daily 4. Atorvastatin 40mg Daily 5. Docusate 100mg TID prn 6. Vitamin D 50,000 Units Q Thursday 7. Hydralazine 25mg TID 8. HCTZ 12.5mg daily 9. Insulin Sliding Scale 10. Insulin Glargine 78 U QHS 11. Metoprolol 50mg Q8 12. Warfarin 4mg QPM 13. Miralax prn 14. MOM prn Home Meds and New Rx's Prescriptions: No Action losartan 50 mg Tablet 50 mg PO DAILY RF: 0 atorvastatin 40 mg Tablet 40 mg PO DAILY RF: 0 metformin 500 mg Tablet 1,000 mg PO BID RF: 0 hydralazine 25 mg Tablet 25 mg PO TID RF: 0 amlodipine 5 mg Tablet 10 mg PO DAILY RF: 0 sodium bicarbonate 650 mg Tablet 650 mg PO DAILY RF: 0 warfarin 2 mg Tablet 4 mg PO HS RF: 0 metoprolol tartrate 50 mg Tablet 50 mg PO BID RF: 0 hydrochlorothiazide 12.5 mg Capsule 12.5 mg PO DAILY RF: 0 ergocalciferol (vitamin D2) [Vitamin D2] 50,000 unit Capsule 1 unit PO DAILY RF: 0 Basaglar KwikPen U-100 Insulin 100 unit/mL (3 mL) Insulin Pen 78 unit subcut HS RF: 0 Discharge Instructions Activity:: Bedrest Diet:: Carb Counting Discharge Orders Discharge Orders: Discharge Order (Routine); Ordered 01/17/19 Ordered By: Josh Felix DS: Data Vitals/I&O Vitals and I&O: Vital Signs Temperature 36.9 C 01/17/19 07:15 Temperature Source Temporal Artery Scan 01/17/19 07:15 Pulse 56 L 01/17/19 06:01 Pulse 57 L 01/17/19 06:01 Respiratory Rate 01/17/19 06:01 Respiratory Effort Non-Labored 01/17/19 07:15 Respiratory Depth Shallow 01/17/19 07:15 Respiratory Pattern Normal 01/17/19 07:15 Blood Pressure 131/57 L 01/17/19 06:01 Blood Pressure Mean 76 01/17/19 06:01 Blood Pressure Position Sitting 01/17/19 03:01 Pulse Oximetry 94 L 01/17/19 06:01 Oxygen Delivery Method Room Air 01/17/19 03:01 Oxygen Flow Rate 0 01/17/19 03:01 Pain Level 0 01/17/19 07:15 Intake & Output 01/16/19 01/16/19 01/17/19 11:59 23:59 11:59 Intake Total 6.333 / 6.333 1133.917 / 1133.917 Output Total 350 / 350 Balance 6.333 / 6.333 783.917 / 783.917 Weight 94.5 kg 97.3 kg Intake: IV 6.333 / 6.333 1133.917 / 1133.917 Output: Urine 350 / 350 Other: # Voids 1 Completed studies during hospitalization [Text1]: Exam(s) a RAD:XR chest 2V PA & lateral SYMPTOMS/DIAGNOSIS: LEFT CHEST PAIN AP AND LATERAL CHEST: The AP view is limited by patient positioning and technique. Leads overlie the chest. The heart size is within normal limits. There may be mild underlying fibrotic changes. No superimposed infiltrate, effusion or pulmonary edema is seen. There is no evidence of pneumothorax. IMPRESSION: No acute abnormality. Labs on day of discharge: Labs from last 24 hours 01/17/19 01/17/19 01/17/19 14:00 09:00 05:18 WBC RBC Hgb Hct MCV MCH MCHC RDW Plt Count MPV Immature Gran % Neutrophils % Lymphocytes % Monocytes % Eosinophils % Basophils % Absolute Neutrophils Absolute Lymphocytes Absolute Monocytes Absolute Eosinophils Absolute Basophils RBC Morphology PT INR APTT Sodium Potassium Chloride Carbon Dioxide Anion Gap BUN Creatinine Estimated GFR/1.73 m2 Glucose Hemoglobin A1c 7.7 H Calcium Magnesium Total Bilirubin AST ALT Alkaline Phosphatase Troponin I Pending Pending NT-Pro-B Natriuret Pep Total Protein Albumin Triglycerides Total Cholesterol LDL Cholesterol Direct HDL Cholesterol TSH 01/17/19 01/17/19 01/17/19 05:18 05:18 05:18 WBC RBC Hgb Hct MCV MCH MCHC RDW Plt Count MPV Immature Gran % Neutrophils % Lymphocytes % Monocytes % Eosinophils % Basophils % Absolute Neutrophils Absolute Lymphocytes Absolute Monocytes Absolute Eosinophils Absolute Basophils RBC Morphology PT 23.3 H INR 2.3 H APTT Sodium Potassium Chloride Carbon Dioxide Anion Gap BUN Creatinine Estimated GFR/1.73 m2 Glucose Hemoglobin A1c Calcium Magnesium 1.9 Total Bilirubin AST ALT Alkaline Phosphatase Troponin I 4.77 H* NT-Pro-B Natriuret Pep Total Protein Albumin Triglycerides Total Cholesterol LDL Cholesterol Direct HDL Cholesterol TSH 01/17/19 01/17/19 01/17/19 05:18 05:18 01:44 WBC 6.82 RBC 3.41 L Hgb 9.7 L Hct 30.0 L MCV 88.0 MCH 28.4 MCHC 32.3 RDW 14.3 Plt Count 204 MPV 11.5 H Immature Gran % 0.3 Neutrophils % 60.1 Lymphocytes % 24.0 Monocytes % 13.2 Eosinophils % 2.3 Basophils % 0.1 Absolute Neutrophils 4.09 Absolute Lymphocytes 1.64 Absolute Monocytes 0.90 H Absolute Eosinophils 0.16 Absolute Basophils 0.01 RBC Morphology Normal PT INR APTT Sodium 138 Potassium 4.2 Chloride 106 Carbon Dioxide 21.4 Anion Gap 10.6 BUN 48 H Creatinine 2.05 H Estimated GFR/1.73 m2 23.94 Glucose 263 H Hemoglobin A1c Calcium 8.1 L Magnesium Total Bilirubin 0.3 AST 24 ALT 22 Alkaline Phosphatase 58 Troponin I NT-Pro-B Natriuret Pep 5079 H Total Protein 6.2 L Albumin 2.7 L Triglycerides 240 H Total Cholesterol 145 LDL Cholesterol Direct 81 HDL Cholesterol 32 L TSH 0.57 01/17/19 01/16/19 01/16/19 01:44 23:42 21:45 WBC RBC Hgb Hct MCV MCH MCHC RDW Plt Count MPV Immature Gran % Neutrophils % Lymphocytes % Monocytes % Eosinophils % Basophils % Absolute Neutrophils Absolute Lymphocytes Absolute Monocytes Absolute Eosinophils Absolute Basophils RBC Morphology PT 25.5 H INR 2.5 H APTT 35.7 H Sodium Potassium Chloride Carbon Dioxide Anion Gap BUN Creatinine Estimated GFR/1.73 m2 Glucose Hemoglobin A1c Calcium Magnesium Total Bilirubin AST ALT Alkaline Phosphatase Troponin I 2.19 H* 0.74 H* NT-Pro-B Natriuret Pep Total Protein Albumin Triglycerides Total Cholesterol LDL Cholesterol Direct HDL Cholesterol TSH 01/16/19 01/16/19 21:45 21:45 WBC 8.42 RBC 3.95 L Hgb 11.3 L Hct 34.5 L MCV 87.3 MCH 28.6 MCHC 32.8 RDW 14.2 Plt Count 241 MPV 12.4 H Immature Gran % 0.5 Neutrophils % 72.9 Lymphocytes % 11.8 Monocytes % 12.7 Eosinophils % 2.0 Basophils % 0.1 Absolute Neutrophils 6.14 Absolute Lymphocytes 0.99 L Absolute Monocytes 1.07 H Absolute Eosinophils 0.17 Absolute Basophils 0.01 RBC Morphology PT INR APTT Sodium 138 Potassium 4.1 Chloride 104 Carbon Dioxide 21.8 Anion Gap 12.2 H BUN 47 H Creatinine 1.88 H Estimated GFR/1.73 m2 26.46 Glucose 219 H Hemoglobin A1c Calcium 8.6 Magnesium 1.4 L Total Bilirubin 0.4 AST 15 ALT 27 Alkaline Phosphatase 69 Troponin I 0.24 H* NT-Pro-B Natriuret Pep Total Protein 7.2 Albumin 3.2 L Triglycerides Total Cholesterol LDL Cholesterol Direct HDL Cholesterol [facility] Medical History Atypical chest pain (Chronic) 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) Atrial fibrillation (Chronic) Osteoarthritis of both hips (Chronic) Diabetic retinopathy associated with uncontrolled type 2 diabetes mellitus (Chronic) Chronic renal insufficiency (Chronic) Type 2 diabetes mellitus, with long-term current use of insulin (Chronic) Essential hypertension (Chronic) History of diabetic ulcer of foot (Resolved) Surgical History History of appendectomy (Resolved) History of partial amputation of toe (Resolved) History of phacoemulsification of cataract of both eyes with intraocular lens implantation (Resolved) Family History Brother Heart disease Father Heart disease Social History Smoking/Tobacco Use Status: Never Alcohol Intake: current Alcohol Intake frequency: holidays/special occasions only Alcohol type: wine Substance use type: does not use Do you feel safe at home: Yes Do you feel safe in your relationship?: Yes
[2019-01-17] MEDS: Amiodarone 150 MG/3 ML VIAL IVP (09:28)
--- NOTE | 2019-01-17 09:37 | DSE_ITS ---
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 (4) Type 2 diabetes mellitus, with long-term current use of insulin: Status: Chronic (5) Essential hypertension: Status: Chronic (6) Chronic renal insufficiency: Status: Chronic (7) Cardiopulmonary arrest with successful resuscitation: Status: Acute (8) V-tach: Status: Chronic Discharge Plan Disposition Patient Disposition: [facility] Condition: Improving Discharge Details Reason For Visit: RAPID ATRIAL FIBRILLATION Admit Date/Time: 01/17/19 01:28 Admit Provider: Alf London Attending Provider: Alf London Primary Care Provider: Sheela Murillo Hospital Course Hospital Course: Chief Complaint: Chest Pain HPI: 68 yr old woman with a past history of DM and AFib on AC with Warfarin, admitted from [facility] Emergency Department 01/17/2019 with a diagnosis of Afib with RVR and NSTEMI. Mrs. Valladares has a history of Afib on anticoagulation chronically with Warfarin, IDDM, HTN, and CKD. She present to the ED with complains of intermittent chest pain. Symptoms were apparently onset 2 days prior and were intermittent in nature, along with concurrent fatigue. Her family also reports that she had been dyspneic while out on walks. She is a resident of [place] and receives her care at [facility], and is here locally visiting family and friends. Upon presentation she was found to be hypertensive at 192/107 and tachycardiac with a HR in the 150's. Her EKG exhibited changes consistent with ST segment depressions laterally in I and AVL, as well as slight depression across V6. Of note, she had work-up of chest pain at [facility] in September, with a normal pharmacologic stress MPI, specifically noted to have an LVEF of 57% and a lack of wall motion abnormalities. The patient's initial troponin was elevated at 0.24, trended to 0.74, 2.19, and 4.77. Discussion with Cardiology at [facility] deemed this likely demand inthe setting of rapid Afib. She was already anticoagulated with a therapeutic INR. She was referred for admission and admitted to the ICU on a Cardizem drip. Early this morning she converted to sinus rhythm, and the Cardizem gtt was discontinued, and her BB was increased. The patient had become asymptomatic from a chest pain standpoint, and her EKG changes had improved. While receiving an ECHO early this morning the patient suddenly became unresponsive, without a pulse or spontaneous respiration. Mrs. Valladares received approximately 60 seconds of CPR and was bagged - her rhythm appeared shockable with VTach/Vfib. She was delivered a one time shock and converted to a sinus bradycardia, with spontaneous resumption of breathing. She regained her normal mental status minutes after. Review of her labs revealed a K+ above 4, and Magnesium of 1.9. She was given 2g of IV Magnesium, and initiated on an Amiodarone drip. Discussion was again had with cardiology at [facility], and she was accepted in transfer, potentially for a diagnostic LHC if deemed appropriate in diabetic woman with a negative chemical stress test last September. Please note that due to time constraints in transfer a CXR was ordered post cardiopulmonary arrest, but not obtained. A urinalysis was also not obtained at time of admission. TSH was normal at 0.57. ECHO was started but not completed. INR is therapeutic at 2.3 this morning. Current Medications: 1. Tylenol 650mg Q4 prn 2. Amiodarone 150 mg IV administered, currently at 1mg/minute 3. Amlodipine 10mg daily 4. Atorvastatin 40mg Daily 5. Docusate 100mg TID prn 6. Vitamin D 50,000 Units Q Thursday 7. Hydralazine 25mg TID 8. HCTZ 12.5mg daily 9. Insulin Sliding Scale 10. Insulin Glargine 78 U QHS 11. Metoprolol 50mg Q8 12. Warfarin 4mg QPM 13. Miralax prn 14. MOM prn Home Meds and New Rx's Prescriptions: No Action losartan 50 mg Tablet 50 mg PO DAILY RF: 0 atorvastatin 40 mg Tablet 40 mg PO DAILY RF: 0 metformin 500 mg Tablet 1,000 mg PO BID RF: 0 hydralazine 25 mg Tablet 25 mg PO TID RF: 0 amlodipine 5 mg Tablet 10 mg PO DAILY RF: 0 sodium bicarbonate 650 mg Tablet 650 mg PO DAILY RF: 0 warfarin 2 mg Tablet 4 mg PO HS RF: 0 metoprolol tartrate 50 mg Tablet 50 mg PO BID RF: 0 hydrochlorothiazide 12.5 mg Capsule 12.5 mg PO DAILY RF: 0 ergocalciferol (vitamin D2) [Vitamin D2] 50,000 unit Capsule 1 unit PO DAILY RF: 0 Basaglar KwikPen U-100 Insulin 100 unit/mL (3 mL) Insulin Pen 78 unit subcut HS RF: 0 Discharge Instructions Activity:: Bedrest Diet:: Carb Counting Discharge Orders Discharge Orders: Discharge Order (Routine); Ordered 01/17/19 Ordered By: Josh Felix DS: Data Vitals/I&O Vitals and I&O: Vital Signs Temperature 36.9 C 01/17/19 07:15 Temperature Source Temporal Artery Scan 01/17/19 07:15 Pulse 56 L 01/17/19 06:01 Pulse 57 L 01/17/19 06:01 Respiratory Rate 01/17/19 06:01 Respiratory Effort Non-Labored 01/17/19 07:15 Respiratory Depth Shallow 01/17/19 07:15 Respiratory Pattern Normal 01/17/19 07:15 Blood Pressure 131/57 L 01/17/19 06:01 Blood Pressure Mean 76 01/17/19 06:01 Blood Pressure Position Sitting 01/17/19 03:01 Pulse Oximetry 94 L 01/17/19 06:01 Oxygen Delivery Method Room Air 01/17/19 03:01 Oxygen Flow Rate 0 01/17/19 03:01 Pain Level 0 01/17/19 07:15 Intake & Output 01/16/19 01/16/19 01/17/19 11:59 23:59 11:59 Intake Total 6.333 / 6.333 1133.917 / 1133.917 Output Total 350 / 350 Balance 6.333 / 6.333 783.917 / 783.917 Weight 94.5 kg 97.3 kg Intake: IV 6.333 / 6.333 1133.917 / 1133.917 Output: Urine 350 / 350 Other: # Voids 1 Completed studies during hospitalization [Text1]: Exam(s) a RAD:XR chest 2V PA & lateral SYMPTOMS/DIAGNOSIS: LEFT CHEST PAIN AP AND LATERAL CHEST: The AP view is limited by patient positioning and technique. Leads overlie the chest. The heart size is within normal limits. There may be mild underlying fibrotic changes. No superimposed infiltrate, effusion or pulmonary edema is seen. There is no evidence of pneumothorax. IMPRESSION: No acute abnormality. Labs on day of discharge: Labs from last 24 hours 01/17/19 01/17/19 01/17/19 14:00 09:00 05:18 WBC RBC Hgb Hct MCV MCH MCHC RDW Plt Count MPV Immature Gran % Neutrophils % Lymphocytes % Monocytes % Eosinophils % Basophils % Absolute Neutrophils Absolute Lymphocytes Absolute Monocytes Absolute Eosinophils Absolute Basophils RBC Morphology PT INR APTT Sodium Potassium Chloride Carbon Dioxide Anion Gap BUN Creatinine Estimated GFR/1.73 m2 Glucose Hemoglobin A1c 7.7 H Calcium Magnesium Total Bilirubin AST ALT Alkaline Phosphatase Troponin I Pending Pending NT-Pro-B Natriuret Pep Total Protein Albumin Triglycerides Total Cholesterol LDL Cholesterol Direct HDL Cholesterol TSH 01/17/19 01/17/19 01/17/19 05:18 05:18 05:18 WBC RBC Hgb Hct MCV MCH MCHC RDW Plt Count MPV Immature Gran % Neutrophils % Lymphocytes % Monocytes % Eosinophils % Basophils % Absolute Neutrophils Absolute Lymphocytes Absolute Monocytes Absolute Eosinophils Absolute Basophils RBC Morphology PT 23.3 H INR 2.3 H APTT Sodium Potassium Chloride Carbon Dioxide Anion Gap BUN Creatinine Estimated GFR/1.73 m2 Glucose Hemoglobin A1c Calcium Magnesium 1.9 Total Bilirubin AST ALT Alkaline Phosphatase Troponin I 4.77 H* NT-Pro-B Natriuret Pep Total Protein Albumin Triglycerides Total Cholesterol LDL Cholesterol Direct HDL Cholesterol TSH 01/17/19 01/17/19 01/17/19 05:18 05:18 01:44 WBC 6.82 RBC 3.41 L Hgb 9.7 L Hct 30.0 L MCV 88.0 MCH 28.4 MCHC 32.3 RDW 14.3 Plt Count 204 MPV 11.5 H Immature Gran % 0.3 Neutrophils % 60.1 Lymphocytes % 24.0 Monocytes % 13.2 Eosinophils % 2.3 Basophils % 0.1 Absolute Neutrophils 4.09 Absolute Lymphocytes 1.64 Absolute Monocytes 0.90 H Absolute Eosinophils 0.16 Absolute Basophils 0.01 RBC Morphology Normal PT INR APTT Sodium 138 Potassium 4.2 Chloride 106 Carbon Dioxide 21.4 Anion Gap 10.6 BUN 48 H Creatinine 2.05 H Estimated GFR/1.73 m2 23.94 Glucose 263 H Hemoglobin A1c Calcium 8.1 L Magnesium Total Bilirubin 0.3 AST 24 ALT 22 Alkaline Phosphatase 58 Troponin I NT-Pro-B Natriuret Pep 5079 H Total Protein 6.2 L Albumin 2.7 L Triglycerides 240 H Total Cholesterol 145 LDL Cholesterol Direct 81 HDL Cholesterol 32 L TSH 0.57 01/17/19 01/16/19 01/16/19 01:44 23:42 21:45 WBC RBC Hgb Hct MCV MCH MCHC RDW Plt Count MPV Immature Gran % Neutrophils % Lymphocytes % Monocytes % Eosinophils % Basophils % Absolute Neutrophils Absolute Lymphocytes Absolute Monocytes Absolute Eosinophils Absolute Basophils RBC Morphology PT 25.5 H INR 2.5 H APTT 35.7 H Sodium Potassium Chloride Carbon Dioxide Anion Gap BUN Creatinine Estimated GFR/1.73 m2 Glucose Hemoglobin A1c Calcium Magnesium Total Bilirubin AST ALT Alkaline Phosphatase Troponin I 2.19 H* 0.74 H* NT-Pro-B Natriuret Pep Total Protein Albumin Triglycerides Total Cholesterol LDL Cholesterol Direct HDL Cholesterol TSH 01/16/19 01/16/19 21:45 21:45 WBC 8.42 RBC 3.95 L Hgb 11.3 L Hct 34.5 L MCV 87.3 MCH 28.6 MCHC 32.8 RDW 14.2 Plt Count 241 MPV 12.4 H Immature Gran % 0.5 Neutrophils % 72.9 Lymphocytes % 11.8 Monocytes % 12.7 Eosinophils % 2.0 Basophils % 0.1 Absolute Neutrophils 6.14 Absolute Lymphocytes 0.99 L Absolute Monocytes 1.07 H Absolute Eosinophils 0.17 Absolute Basophils 0.01 RBC Morphology PT INR APTT Sodium 138 Potassium 4.1 Chloride 104 Carbon Dioxide 21.8 Anion Gap 12.2 H BUN 47 H Creatinine 1.88 H Estimated GFR/1.73 m2 26.46 Glucose 219 H Hemoglobin A1c Calcium 8.6 Magnesium 1.4 L Total Bilirubin 0.4 AST 15 ALT 27 Alkaline Phosphatase 69 Troponin I 0.24 H* NT-Pro-B Natriuret Pep Total Protein 7.2 Albumin 3.2 L Triglycerides Total Cholesterol LDL Cholesterol Direct HDL Cholesterol [facility] Medical History Atypical chest pain (Chronic) 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) Atrial fibrillation (Chronic) Osteoarthritis of both hips (Chronic) Diabetic retinopathy associated with uncontrolled type 2 diabetes mellitus (Chronic) Chronic renal insufficiency (Chronic) Type 2 diabetes mellitus, with long-term current use of insulin (Chronic) Essential hypertension (Chronic) History of diabetic ulcer of foot (Resolved) Surgical History History of appendectomy (Resolved) History of partial amputation of toe (Resolved) History of phacoemulsification of cataract of both eyes with intraocular lens implantation (Resolved) Family History Brother Heart disease Father Heart disease Social History Smoking/Tobacco Use Status: Never Alcohol Intake: current Alcohol Intake frequency: holidays/special occasions only Alcohol type: wine Substance use type: does not use Do you feel safe at home: Yes Do you feel safe in your relationship?: Yes
[2019-01-17 09:56] LABS: Troponin I 6.72 ng/mL (0.00-0.06)
--- NOTE | 2019-01-17 11:18 | PDOC.CMPRO ---
- If Service Date Differs Date of service: 01/17/19 Time of Service: 11:18 Care Management Progress Note S/O:Kayla experienced a cardiac arrest this morning while undergoing an ECHOcardiogram. She was successfully resuscitated and was awaiting transfer to [facility] when CM came to visit. She states that she feels OK, all things considered. Family in attendance.She will be transported to [facility] via ambulance. A:Kayla is a 68 year old woman admitted to [facility] on 01/16/19 with a NSTEMI. P:Kayla has been transferred by ambulance to [facility] following successful resuscitation after a cardiac arrest. Family present during the event and remained until transfer.
--- NOTE | 2019-01-17 11:29 | CMPROGNOTE_ITS ---
- If Service Date Differs Date of service: 01/17/19 Time of Service: 11:18 Care Management Progress Note S/O:Kayla experienced a cardiac arrest this morning while undergoing an ECHOcardiogram. She was successfully resuscitated and was awaiting transfer to [facility] when CM came to visit. She states that she feels OK, all things considered. Family in attendance.She will be transported to [facility] via ambulance. A:Kayla is a 68 year old woman admitted to [facility] on 01/16/19 with a NSTEMI. P:Kayla has been transferred by ambulance to [facility] following successful resuscitation after a cardiac arrest. Family present during the event and remained until transfer.
--- NOTE | 2019-01-17 16:16 | CHAPLAIN ---
Kayla's granddaughter, Carolina, was her with Kayla when a code blue was called for Kayla. I stayed with Carolina, who asked to remain in the room. They had been visiting the area from [place] to attend a graduation at [facility] on Thursday. Carolina was able to reach some other family members who were on their way up and scheduled to arrive before Kayla was transferred to [facility]. Following the code, Carolina was able to speak with Kayla. Kayla said she did not remember the code or being shocked, but remembered feeling that she was drifting away.
== END 2019-01-17 10:56 | disposition short-term general hospital (02) | DRG 280 ==
LOC: ER 01-17 01:29 → ICU 01-17 02:22
PROVIDERS: Admitting Provider Internal Medicine; Emergency Provider Emergency Medicine; PCP Nurse Practitioner Family; Visit Provider Internal Medicine
DX: I21.A1 Myocardial infarction type 2 (principal); I46.9 Cardiac arrest, cause unspecified; N18.4 Chronic kidney disease, stage 4 (severe); I13.10 Hypertensive heart and chronic kidney disease without heart failure, with stage 1 through stage 4 chronic kidney disease, or unspecified chronic kidney disease; I48.2 Chronic atrial fibrillation; Z79.01 Long term (current) use of anticoagulants; E11.22 Type 2 diabetes mellitus with diabetic chronic kidney disease; E87.5 Hyperkalemia; E83.42 Hypomagnesemia; Z79.4 Long term (current) use of insulin; I08.0 Rheumatic disorders of both mitral and aortic valves
CPT/HCPCS: 36415; 80053; 80061; 83721; 93005; 93306; 96361; 96365; 96366; 99223; 99291; 71046; 83036; 83735; 83880; 84443; 84484; 85025; 85610; 85730; 93010; J3490